=== PATIENT | female | born 1945 | race Caucasian/White ===

== ENCOUNTER 2017-03-16 14:14 | Emergency (ER) | payer MEDICARE, BC ==
[2017-03-16] MEDS ORDERED: Sodium Chloride 0.9% 10 ML Syringe FLUSH PRN (14:30)
[2017-03-16 15:19] LABS: CHLORIDE,CL 106 mmol/L (101-111); SODIUM,NA 139 mmol/L (135-145)
[2017-03-16] MEDS ORDERED: Iopamidol 612 MG/ML 100 ML Bottle IVPUSH ONE (15:46)
[2017-03-16] MEDS ORDERED: Gabapentin 300 MG Cap PO ONE (16:53)
--- NOTE | 2017-03-18 16:14 | EDM.PDOC ---
Scribed by Princess Moon 03/16/17 0219 for Brad Johnston MD ED HPI GENERAL MEDICAL PROBLEM - General Chief Complaint: Chest Pain Stated Complaint: BACK AND SHOULDER PAIN Time Seen by Provider: 03/16/17 14:20 Source of Information: Reports: Patient, RN, RN Notes Reviewed History Limitations: Reports: No Limitations - History of Present Illness INITIAL COMMENTS - FREE TEXT/NARRATIVE: Complaining of onset of left "shoulder blade" pain yesterday. The pain is very sharp and comes and goes without relation to movement, breathing or cough. Denies neck pain, injury, SOB, chest pain, fever, chills, palpitations or rapid heart rate. Admits to similar pain in the past but never this sharp, intense or lasted this long. Location: Reports: Upper Extremity, Left Quality: Reports: Ache Severity: Severe Improves with: Reports: None Worsens with: Reports: None Associated Symptoms: Reports: No Other Symptoms - Related Data Allergies Allergy/AdvReac Type Severity Reaction Status Date / Time No Known Allergies Allergy Verified 03/16/17 14:16 Home Meds: Home Meds Rosuvastatin Calcium [Crestor] 10 mg PO DAILY 02/24/14 [History] Omeprazole Magnesium [Prilosec Otc] 20 mg PO DAILY 03/16/17 [History] Past Medical History HEENT History: Reports: Impaired Vision Cardiovascular History: Reports: High Cholesterol - Past Surgical History Musculoskeletal Surgical History: Reports: Other (See Below) Other Musculoskeletal Surgeries/Procedures:: fractured ankle Social & Family History - Family History Family Medical History: Noncontributory - Tobacco Use Smoking Status *Q: Never Smoker Second Hand Smoke Exposure: No - Caffeine Use Caffeine Use: Reports: Coffee - Alcohol Use Days Per Week of Alcohol Use: 0 - Recreational Drug Use Recreational Drug Use: No ED ROS GENERAL - Review of Systems Review Of Systems: ROS reveals no pertinent complaints other than HPI. ED EXAM, UPPER BACK/NECK PAIN - Physical Exam Exam: See Below Exam Limited By: No Limitations General Appearance: Alert, WD/WN, No Apparent Distress, Obese Eye Exam: Bilateral Eye: Normal Inspection Ears Exam: Normal External Exam, Normal Canal, Hearing Grossly Normal, Normal TMs Nose Exam: Normal Inspection, Normal Mucousa, No Blood Throat/Mouth Exam: Normal Inspection, Normal Lips, Normal Teeth, Normal Gums, Normal Oropharynx, Normal Voice, No Airway Compromise Head Exam: Atraumatic, Normocephalic Neck Exam: Full Range of Motion Cardiovascular/Respiratory: Regular Rate, Rhythm, No M/R/G, Normal Peripheral Pulses, No JVD, Normal Breath Sounds, No Respiratory Distress GI/Abdominal: Other (benign obese abdomen) (Female) Exam: Deferred Rectal (Female) Exam: Deferred Back Exam: Normal Inspection, Full Range of Motion, NT Extremities: Normal Inspection, Normal Range of Motion, Non-Tender, No Pedal Edema, Normal Capillary Refill Neurologic: clinical services director II-XII nml As Tested, No Motor/Sensory Deficits, Alert, Normal Mood/Affect, Oriented x 3 Psychiatric: Normal Affect, Normal Mood Skin Exam: Normal Color, Warm/Dry Lymphatic: No Adenopathy EKG INTERPRETATION EKG Date: 03/16/17 Time: 17:27 Rhythm: Other (sinus rhythm) Rate (Beats/Min): 65 [place]: Normal P-Wave: Present QRS: Normal ST-T: Normal QT: Normal Course - Vital Signs Last Recorded V/S: Last Vital Signs Temp 36.1 C 03/16/17 14:18 Pulse 80 03/16/17 14:18 Resp 18 03/16/17 14:18 BP Pulse Ox 100 03/16/17 14:18 - Orders/Labs/Meds Labs: Laboratory Tests 03/16/17 03/16/17 03/16/17 Range/Units 14:43 14:43 14:43 WBC 5.9 (5.0-10.0) 10^3/uL RBC 5.31 (4.2-5.4) 10^6/uL Hgb 14.5 (12.0-16.0) g/dL Hct 42.8 (37.0-47.0) % MCV 80.6 (80-100) fL MCH 27.3 (27.0-34.0) pg MCHC 33.9 (33.0-35.0) g/dL Plt Count 233 (150-450) 10^3/uL Neut % (Auto) 54.5 (42.2-75.2) % Lymph % (Auto) 36.3 (20.5-50.1) % [place] % (Auto) 7.3 (2-8) % Eos % (Auto) 1.7 (1.0-3.0) % Baso % (Auto) 0.2 (0.0-1.0) % D-Dimer, Quantitative (0-400) ng/mL Sodium 139 (135-145) mmol/L Potassium 4.4 (3.6-5.0) mmol/L Chloride 106 (101-111) mmol/L Carbon Dioxide 21.0 (21.0-31.0) mmol/L Anion Gap 16.4 BUN 14 (7-18) mg/dL Creatinine 0.8 (0.6-1.3) mg/dL Est Cr Clr Drug Dosing 56.36 mL/min Estimated GFR (MDRD) > 60 BUN/Creatinine Ratio 17.50 Glucose 104 (74-105) mg/dL Calcium 9.6 (8.4-10.2) mg/dl Total Bilirubin 1.2 H (0.2-1.0) mg/dL AST 22 (10-42) IU/L ALT 18 (10-60) IU/L Alkaline Phosphatase 52 (42-121) IU/L Troponin I < 0.02 (0.00-0.02) ng/ml B-Natriuretic Peptide 214 H (0-100) pg/ml Total Protein 7.0 (6.7-8.2) g/dl Albumin 4.1 (3.2-5.5) g/dl Globulin 2.9 Albumin/Globulin Ratio 1.41 /12/26 Range/Units 15:40 WBC (5.0-10.0) 10^3/uL RBC (4.2-5.4) 10^6/uL Hgb (12.0-16.0) g/dL Hct (37.0-47.0) % MCV (80-100) fL MCH (27.0-34.0) pg MCHC (33.0-35.0) g/dL Plt Count (150-450) 10^3/uL Neut % (Auto) (42.2-75.2) % Lymph % (Auto) (20.5-50.1) % [place] % (Auto) (2-8) % Eos % (Auto) (1.0-3.0) % Baso % (Auto) (0.0-1.0) % D-Dimer, Quantitative 292 (0-400) ng/mL Sodium (135-145) mmol/L Potassium (3.6-5.0) mmol/L Chloride (101-111) mmol/L Carbon Dioxide (21.0-31.0) mmol/L Anion Gap BUN (7-18) mg/dL Creatinine (0.6-1.3) mg/dL Est Cr Clr Drug Dosing mL/min Estimated GFR (MDRD) BUN/Creatinine Ratio Glucose (74-105) mg/dL Calcium (8.4-10.2) mg/dl Total Bilirubin (0.2-1.0) mg/dL AST (10-42) IU/L ALT (10-60) IU/L Alkaline Phosphatase (42-121) IU/L Troponin I (0.00-0.02) ng/ml B-Natriuretic Peptide (0-100) pg/ml Total Protein (6.7-8.2) g/dl Albumin (3.2-5.5) g/dl Globulin Albumin/Globulin Ratio Meds: Medications Discontinued Medications Generic Name Dose Route Start Last Admin Trade Name Freq PRN Reason Stop Dose Admin Gabapentin 300 mg 03/16/17 16:53 03/16/17 17:05 Neurontin PO 03/16/17 16:54 Not Given ONETIME ONE Iopamidol 100 ml 03/16/17 15:46 03/16/17 15:55 Isovue-300 (61%) IVPUSH 03/16/17 15:47 100 ml ONETIME ONE Administration Sodium Chloride 10 ml 03/16/17 14:30 03/16/17 14:45 Saline Flush FLUSH 10 ml ASDIRECTED PRN Administration Keep Vein Open - Radiology Interpretation Free Text/Narrative:: Chest x-ray: No evidence for acute abnormality in the chest. See rad report. CT scan abdomen and pelvis: No definite acute abnormality seen to account for symptoms. See rad report. Departure - Departure Time of Disposition: 16:51 Disposition: Home, Self-Care 01 Condition: Good Clinical Impression: Cervical radiculopathy, Pain of left scapula - Discharge Information Instructions: Cervical Radiculopathy, [id number] Forms: ED Department Discharge Additional Instructions: RX: Gabapentin 100mg (day time dose) and 300mg (bed time dose). Follow up in clinic this week for recheck. I have read and agree with the documentation that has been completed regarding this visit. By signing this record, I attest that the documentation was completed in my physical presence and is an accurate record of the encounter.
--- NOTE | 2017-03-19 09:50 | EKG ---
03/16/2017- ARSALAN GENAO - EKG per my reading shows sinus rhythm at the rate of [address] changes[address] [facility] /[id number]
== END 2017-03-16 17:01 | disposition home or self-care (01) ==
LOC: DL.ED 14:14
DX: M25.512 Pain in left shoulder (principal); M54.12 Radiculopathy, cervical region; H54.7 Unspecified visual loss; E78.00 Pure hypercholesterolemia, unspecified; Z79.899 Other long term (current) drug therapy
CPT/HCPCS: 36415; 71010; 74177; 80053; 83880; 84484; 85025; 85379; 93005; 99284; J7050; Q9967; 93010; 99283